=== PATIENT | female | born 1985 | race Hispanic/Latino ===

== ENCOUNTER 2017-11-14 06:02 | Day surgery (SDC) | payer BC ==
[2017-11-14] MEDS ORDERED: ANCEF/STERILE WATER 2 GM/20 ML IV NR (07:00)
--- NOTE | 2017-11-14 07:49 | Anesthesia Day of Surgery ---
Anesthesia Day of Surgery - Day of Surgery Patient Examined: Yes Patient H&P Reviewed: Yes Patient is NPO: Yes
--- NOTE | 2017-11-14 07:49 | Anesthesia Consultation ---
Anesthesia Consult and Med Hx Date of service: 11/14/17 - Airway Anesthetic Teeth Evaluation: Good ROM Head & Neck: Adequate Mental/Hyoid Distance: Adequate Mallampati Class: Class I Intubation Access Assessment: Good - Pulmonary Exam CTA: Yes - Cardiac Exam Cardiac Exam: RRR - Pre-Operative Health Status ASA Pre-Surgery Classification: ASA2 Proposed Anesthetic Plan: General - Pulmonary Hx Smoking: No Hx Sleep Apnea: No (REJI PRE SCREEN NEGATIVE) - Cardiovascular System Hx Hypertension: No - Central Nervous System Hx Back Pain: Yes - Hematic Hx Anemia: Yes (NOT RECENT) - Other Systems Hx Cancer: No
[2017-11-14] MEDS ORDERED: NACL 0.9% 1000 ML 1,000 ML IV SCH (08:00)
[2017-11-14] MEDS ORDERED: VERSED IV NR (08:00)
[2017-11-14] MEDS ORDERED: NACL BACTERIOSTATIC INFILTRATI ONE (08:06)
[2017-11-14] MEDS ORDERED: VERSED ONE (08:22)
[2017-11-14] MEDS ORDERED: DIPRIVAN 10 MG/ML IV ONE (08:22)
[2017-11-14] MEDS ORDERED: SUBLIMAZE ONE (08:22)
[2017-11-14] MEDS ORDERED: TRANSDERM-SCOP TD NR (08:29)
[2017-11-14] MEDS ORDERED: ADRENALIN ONE (08:56)
[2017-11-14] MEDS ORDERED: MARCAINE 0.5% 30 ML INFILTRATI ONE (08:56)
[2017-11-14] MEDS ORDERED: XYLOCAINE 1%/ EPI 1:100,000 INFILTRATI ONE (08:57)
[2017-11-14] MEDS ORDERED: ARTIFICIAL TEARS OPHTH OINT ONE (09:22)
[2017-11-14] MEDS ORDERED: ePHEDrine SULFATE ONE (09:43)
[2017-11-14] MEDS ORDERED: NEO SYNEPHRINE/NS Syringe(OR USE) IV ONE (09:46)
[2017-11-14] MEDS ORDERED: ADRENALIN IR ONE (09:54)
[2017-11-14] MEDS ORDERED: BENADRYL ONE (10:59)
[2017-11-14] MEDS ORDERED: XYLOCAINE MPF 2% ONE (11:00)
[2017-11-14] MEDS ORDERED: ZOFRAN ONE (11:00)
[2017-11-14] MEDS ORDERED: DECADRON ONE (11:00)
[2017-11-14] MEDS ORDERED: ROBINUL ONE ×2 (11:00→11:40)
[2017-11-14] MEDS ORDERED: NEOSTIGMINE ONE (11:40)
[2017-11-14] MEDS ORDERED: MARCAINE 0.5% INFILTRATI ONE (12:15)
[2017-11-14] MEDS ORDERED: DILAUDID ONE ×2 (12:51→13:07)
[2017-11-14] MEDS ORDERED: TORADOL ONE (13:10)
[2017-11-14] MEDS ORDERED: NORCO 7.5/325 PO PRN (14:00)
[2017-11-14] MEDS ORDERED: NORCO 7.5/325 ONE (14:02)
--- NOTE | 2017-11-14 14:35 | Post Anesthesia Evaluation ---
- Post Anesthesia Evaluation Patient Participated: Yes Airway Patent: Yes Stable Respiratory Function: Yes Nausea/Vomiting: No Temp > 96.8F: Yes Pain Manageable: Yes Adequeate Hydration: Yes Anesthesia Complications: No
[2017-11-14 17:32] VITALS: BP 115/59
--- NOTE | 2017-11-15 11:51 | XRay Report ---
Operative right hip: Several images are obtained during surgery demonstrating operative hardware used for labral tear repair. No bone changes are identified.
--- NOTE | 2017-12-19 22:48 | Operative Report ---
PREOPERATIVE DIAGNOSES: 1. Acetabular labral tear anterior and superior. 2. Femoroacetabular impingement. 3. Degenerative joint disease of the right hip joint. 4. Soft tissue hypertrophy, right hip joint. POSTOPERATIVE DIAGNOSES: 1. Acetabular labral tear anterior and superior. 2. Femoroacetabular impingement. 3. Degenerative joint disease of the right hip joint. 4. Soft tissue hypertrophy, right hip joint. COMPLICATIONS: None. BLOOD LOSS: Minimal. SURGEON: Camilo Dixon M.D. CRAYON GRADER: Amaury Pimentel, operative tech. PROCEDURES PERFORMED: 1. Right hip arthroscopy. 2. Arthroscopic labral repair. 3. Arthroscopic rim resection and removal of the impinging bone, femoral side as well. BRIEF HISTORY: The patient had a painful right hip, failed conservative treatment, opted to go for surgical intervention. Risks, benefit discussed, informed consent obtained, brought to the hospital for the above procedure. DETAILS OF THE OPERATIVE REPORT: The patient was taken to the operating room. After smooth general endotracheal anesthesia, all the bony prominences were carefully padded, placed supine on the table and right lower extremities were secured into the [employer] traction table attachment. All the bony prominences were carefully padded. The big perineal post was used to more abutting to the medial thigh. Right hip and right lower extremity prepped and draped in a sterile fashion. Antibiotic given 2 g Ancef half an hour before the procedure. Fluoroscopy and arthroscopy was used throughout the procedure. Necessary anatomical landmarks were drawn. Anterolateral portal was marked including the anterior trochanteric portal and posterior trochanteric portal was marked including the anterior portal and the mid anterior portal was marked. Anatomical landmarks were drawn out. We stayed completely lateral to the line drawn perpendicular from the ASIS. I stayed lateral to it. Fluoroscopic guidance were used to make necessary portal. A central spinal needle was used to insert this into the right hip joint under fluoroscopic guidance and the joint was insufflated with 30 mL of normal saline. It was insufflated previously. Before this was performed and before the prepping and draping was performed, gross traction was done and we noticed a vacuum sign as well. After the sterile prep and drape, the spinal needle was inserted under fluoroscopic guidance and joint insufflated with 30 mL normal saline, mild traction was performed. Following this, the nitinol guidewire was placed and confirmed its position in the right hip joint and to the AP and lateral view. We decided to go with this, then #11 blade was used to make the portal. Next, three dilators were used to make the anterior trochanteric portal and anterolateral portal was created. The 5-5 cannula was then inserted. We saw an anterior capsule triangle. Under fluoroscopic guidance, the anterior portal was created using the cross tract and we were able to enter into the right hip joint, second portal was then created under direct visualization. Once the spinal needle was placed in the proper position, the nitinol guidewire was then placed through it followed by the sequential dilators to insert a 5.5 cannula. Once this was confirmed, fluid was started and banana blade was then placed to perform necessary capsulotomy on the anterior end and anterolateral portal by switching the portals. Once this was done with luis and debridement of the thick hypertrophic tissue, which was encountered into the hip was performed. This was followed by getting access into the superolateral acetabular area where the thick hypertrophic tissue and impinging bone, which rim resection was performed. We noticed some fraying of the labral tissue, which was debrided off. There was a labral tear, which was identified with some delamination for which repair was performed. After the necessary debridement of the soft tissue and after impinging soft tissue and rim resection was performed. The FiberWire type of stitch was then placed through [place] through the labrum capturing the whole labrum and prepared for by Bioraptor anchor 2.9 into the superolateral area. On the anterior cannula, we had great access. Before the knotless anchor was placed, the larger cannula was inserted for better suture management. A good repair of the labrum was performed and we had excellent reconstruction of the labrum. Once necessary rim resection of the labral repair and debridement of the soft tissue was performed, traction was slowly released and the knee was flexed and we got access into the peripheral compartment where the significant bony hump was encountered on the superolateral aspect just distal to the femoral head and the third was used to find a necessary demarcation and luis and minimal bur was used to do the Cam resection. Care was taken to preserve all the retinacular vessels. We were nowhere near close to it. No active bleeding was seen. Once necessary loose tissue and thick hypertrophic tissue, which was also seen. Anterosuperior neck was debrided off as well as using the ablation and shaver. After the necessary resection was performed, the shaver was used to clean all the debris. The patient tolerated the procedure well. The suction and the instruments were removed from the portals. Portal sites were closed with 3-0 nylon interrupted sutures. Dressing was done with Xeroform, 4 x 4s, ABD, and paper tape. The patient tolerated procedure well, shifted to recovery room in stable condition. Sponge and needle count was correct. JOB# [id number] SK/NTS
== END 2017-11-14 15:37 | disposition home or self-care (01) ==
LOC: OR 06:02
PROVIDERS: ATTEND Orthopaedic Surgery
DX: S73.191A Other sprain of right hip, initial encounter (principal); M25.851 Other specified joint disorders, right hip; X58.XXXA Exposure to other specified factors, initial encounter; Y93.9 Activity, unspecified; Y92.89 Other specified places as the place of occurrence of the external cause; Y99.9 Unspecified external cause status
CPT/HCPCS: 29916; 73501; 81025; 86850; 86900; 86901; 97161; C1713; J0171; J0690; J1100; J1170; J1200; J1885; J2250; J2370; J2405; J2704; J2710; J3010; J7030